=== PATIENT | female | born 1955 | race Caucasian/White ===

== ENCOUNTER 2022-04-24 17:46 | Emergency (ER) | payer SELFPAY ==
[2022-04-24] MEDS ORDERED: Sodium Chloride 0.9% 10 ML Syringe FLUSH PRN (17:52)
[2022-04-24 18:47] LABS: ANION GAP 11.6 mEq/L (7-13)
[2022-04-24] MEDS ORDERED: Iopamidol 612 MG/ML 100 ML Bottle IVPUSH ONE (20:36)
== END 2022-04-24 21:40 | disposition home or self-care (01) ==
LOC: DL.ED 17:46
DX: K20.0 Eosinophilic esophagitis (principal)
CPT/HCPCS: 36415; 71045; 74177; 80053; 82150; 83690; 84484; 85025; 93005; 99285; J3490; Q9967

== ENCOUNTER 2023-12-31 10:49 | Observation (INO) | payer SELFPAY ==
[2023-12-31 11:45] LABS: HEMATOCRIT 44.4 % (37.0-47.0); HEMOGLOBIN 14.6 g/dL (12.0-16.0); MEAN CORPUSCULAR HEMOGLOBIN 30.3 pg (27.0-34.0); MEAN CORPUSCULAR HGB CONC 32.9 g/dL (33.0-35.0); MEAN CORPUSCULAR VOLUME 92.1 fL (80-100); PLATELET COUNT,PLT 434 10^3/uL (150-450); RED BLOOD CELL COUNT 4.82 10^6/uL (4.2-5.4); WHITE BLOOD CELL COUNT,WBC 17.4 10^3/uL (5.0-10.0)
[2023-12-31 11:53] LABS: BASOPHILS PERCENT AUTO 0.2 % (0.0-1.0); EOSINOPHILS PERCENT AUTO 1.8 % (1.0-3.0); LYMPHOCYTES PERCENT AUTO 20.8 % (20.5-50.1); MONOCYTES PERCENT AUTO 7.8 % (2-8); NEUTROPHILS PERCENT AUTO 69.4 % (42.2-75.2)
[2023-12-31 11:54] LABS: PROTHROMBIN TIME 10.1 SEC (9.0-12.0)
[2023-12-31 11:56] LABS: A/G RATIO 0.9; ALBUMIN 3.5 g/dL (3.4-5.0); ANION GAP 14.6 mEq/L (7-13); BILIRUBIN TOTAL 0.6 mg/dL (0.2-1.0); BUN/CREATININE RATIO 18.7 (No establ ref range); CALCIUM 9.2 mg/dL (8.5-10.1); CREATININE 0.75 mg/dL (0.55-1.02); EST CRCL DRUG DOSING (CG) 57.57 mL/min; POTASSIUM,K 3.6 mmol/L (3.5-5.1); PROTEIN TOTAL,TP 7.6 g/dL (6.4-8.2)
[2023-12-31 12:19] LABS: BAND PERCENT MAN 1 %; EOSINOPHILS PERCENT MAN 1 % (1-3); LYMPHOCYTES PERCENT MAN 21 % (20-50); MONOCYTES PERCENT MAN 11 % (2-8); SEG NEUTROPHILS PERCENT MAN 66 % (42-75)
[2023-12-31] MEDS: Iopamidol 612 MG/ML 100 ML Bottle IVPUSH ONE (12:41)
[2023-12-31] MEDS: Piperacillin/Tazobactam 3.375 GM in Sodium Chloride 0.9% 100 ML IV ONE (14:04)
[2023-12-31] MEDS: Lactated Ringers 1,000 ML IV ONE (14:34)
[2023-12-31] MEDS ORDERED: Acetaminophen/HYDROcodone 325-5 MG Tab PO PRN (15:15)
[2023-12-31 15:37] LABS: HEMATOCRIT 40.8 % (37.0-47.0); HEMOGLOBIN 13.4 g/dL (12.0-16.0); MEAN CORPUSCULAR HEMOGLOBIN 30.4 pg (27.0-34.0); MEAN CORPUSCULAR HGB CONC 32.8 g/dL (33.0-35.0); MEAN CORPUSCULAR VOLUME 92.5 fL (80-100); RED BLOOD CELL COUNT 4.41 10^6/uL (4.2-5.4); WHITE BLOOD CELL COUNT,WBC 14.1 10^3/uL (5.0-10.0)
[2023-12-31] MEDS: Acetaminophen 325 MG Tab PO PRN (16:10)
[2023-12-31] MEDS: metroNIDAZOLE/Normal Saline 500 MG in Premix Bag 1 BAG IV SCH (16:10)
[2023-12-31] MEDS: Ciprofloxacin in D5W 400 MG in Premix Bag 1 BAG IV SCH (21:25)
[2024-01-01 06:29] LABS: HEMATOCRIT 41.3 % (37.0-47.0); HEMOGLOBIN 13.5 g/dL (12.0-16.0); MEAN CORPUSCULAR HEMOGLOBIN 30.3 pg (27.0-34.0); MEAN CORPUSCULAR HGB CONC 32.7 g/dL (33.0-35.0); MEAN CORPUSCULAR VOLUME 92.8 fL (80-100); RED BLOOD CELL COUNT 4.45 10^6/uL (4.2-5.4); WHITE BLOOD CELL COUNT,WBC 14.2 10^3/uL (5.0-10.0)
[2024-01-01] MEDS: DULoxetine 30 MG Cap PO SCH (10:37)
[2024-01-01 17:05] LABS: HEMATOCRIT 41.2 % (37.0-47.0); HEMOGLOBIN 13.4 g/dL (12.0-16.0); MEAN CORPUSCULAR HEMOGLOBIN 30.5 pg (27.0-34.0); MEAN CORPUSCULAR HGB CONC 32.5 g/dL (33.0-35.0); MEAN CORPUSCULAR VOLUME 93.6 fL (80-100); RED BLOOD CELL COUNT 4.4 10^6/uL (4.2-5.4); WHITE BLOOD CELL COUNT,WBC 13.1 10^3/uL (5.0-10.0)
[2024-01-02 08:21] LABS: HEMATOCRIT 42.3 % (37.0-47.0); HEMOGLOBIN 13.5 g/dL (12.0-16.0); MEAN CORPUSCULAR HEMOGLOBIN 29.7 pg (27.0-34.0); MEAN CORPUSCULAR HGB CONC 31.9 g/dL (33.0-35.0); MEAN CORPUSCULAR VOLUME 93.2 fL (80-100); RED BLOOD CELL COUNT 4.54 10^6/uL (4.2-5.4); WHITE BLOOD CELL COUNT,WBC 10.6 10^3/uL (5.0-10.0)
== END 2024-01-02 12:04 | disposition home or self-care (01) ==
LOC: DL.ED 10:49 → DL.MS 14:15
PROVIDERS: ADMIT Internal Medicine; ATTEND Internal Medicine
DX: K55.9 Vascular disorder of intestine, unspecified (principal); G89.29 Other chronic pain; M54.9 Dorsalgia, unspecified; Z79.899 Other long term (current) drug therapy
CPT/HCPCS: 36415; 74177; 80053; 83690; 85025; 85027; 85610; 96361; 96365; 96366; 96367; 96374; 96375; 96376; 99222; 99232; 99238; 99284; 99285-25; A9270-GY; G0378; J0744; J1836; J2543; J3490; J7120; Q9967

== ENCOUNTER 2024-02-18 06:59 | Day surgery (SDC) | payer MEDICARE ==
[2024-02-18] MEDS ORDERED: fentaNYL 100 MCG/2 ML SDV IV ONE (07:00)
[2024-02-18] MEDS ORDERED: Midazolam 1 MG/ML 2 ML SDV IV ONE (07:00)
[2024-02-18] MEDS ORDERED: fentaNYL 100 MCG/2 ML SDV ONE (07:28)
[2024-02-18] MEDS ORDERED: Midazolam 1 MG/ML 2 ML SDV ONE (07:28)
[2024-02-18] MEDS: Dextrose 5%-0.45% NaCl 1,000 ML IV SCH (07:37)
[2024-02-18] MEDS: fentaNYL 100 MCG/2 ML SDV IV ONE ×2 (08:00→08:01)
[2024-02-18] MEDS: Midazolam 1 MG/ML 2 ML SDV IV ONE ×6 (08:01→08:12)
== END 2024-02-18 10:00 | disposition home or self-care (01) ==
LOC: DL.ENDO 06:59
PROVIDERS: ATTEND Internal Medicine Gastroenterology
DX: Z12.11 Encounter for screening for malignant neoplasm of colon (principal); K63.5 Polyp of colon; K57.30 Diverticulosis of large intestine without perforation or abscess without bleeding
CPT/HCPCS: 88305; J2250; J3010; J7042

== ENCOUNTER 2025-01-06 10:12 | Emergency (ER) | payer MEDICARE, OTHER ==
[2025-01-06] MEDS: Acetaminophen 500 MG Tab PO ONE (11:08)
[2025-01-06] MEDS ORDERED: Sodium Chloride 0.9% 10 ML Syringe FLUSH PRN (11:35)
[2025-01-06 11:52] LABS: BASOPHILS PERCENT AUTO 0.3 % (0.0-1.0); EOSINOPHILS PERCENT AUTO 1.6 % (1.0-3.0); HEMATOCRIT 43.4 % (37.0-47.0); HEMOGLOBIN 13.6 g/dL (12.0-16.0); MEAN CORPUSCULAR HEMOGLOBIN 29.3 pg (27.0-34.0); MEAN CORPUSCULAR HGB CONC 31.3 g/dL (33.0-35.0); MEAN CORPUSCULAR VOLUME 93.5 fL (80-100); MONOCYTES PERCENT AUTO 8.6 % (2-8); NEUTROPHILS PERCENT AUTO 72.5 % (42.2-75.2); PLATELET COUNT,PLT 387 10^3/uL (150-450); RED BLOOD CELL COUNT 4.64 10^6/uL (4.2-5.4); WHITE BLOOD CELL COUNT,WBC 18.4 10^3/uL (5.0-10.0)
[2025-01-06 12:09] LABS: ANION GAP 11.7 mEq/L (7-13); CREATININE 1.03 mg/dL (0.55-1.02); EST CRCL DRUG DOSING (CG) 39.45 mL/min; POTASSIUM,K 3.7 mmol/L (3.5-5.1)
[2025-01-06 12:10] LABS: PROTHROMBIN TIME 10.2 SEC (9.0-12.0); PTT,PARTIAL THROMBOPLSTIN TIME 22.6 SEC (22.0-34.0)
[2025-01-06] MEDS: Lactated Ringers 1,000 ML IV SCH (12:27)
== END 2025-01-06 12:40 ==
LOC: DL.ED 10:12
DX: S06.6X0A Traumatic subarachnoid hemorrhage without loss of consciousness, initial encounter (principal); S06.5X0A Traumatic subdural hemorrhage without loss of consciousness, initial encounter; Z79.899 Other long term (current) drug therapy; W01.198A Fall on same level from slipping, tripping and stumbling with subsequent striking against other object, initial encounter
CPT/HCPCS: 36415; 70450; 72125; 80048; 85025; 85610; 85730; 99285; A9270; J7120